=== PATIENT | female | born 1955 | race African-American/Black ===

== ENCOUNTER 2016-10-14 14:55 | Emergency (ER) | payer SELFPAY ==
[2016-10-14 14:37] LABS: ASCORBIC ACID (UR NOT ORDER) NEG (NEG); BILIRUBIN, URINE NEGATIVE (NEG); ER URINALYSIS TAT 0 Hrs 20 Mins; KETONE, URINE NEGATIVE (NEG); LEUKOCYTE ESTERASE(NOT OR SMALL (NEG); NITRITE (URINE) NEG (NEG); WBC (NOT ORDERED) (RFLEX) 2 (0-5)
[~2016-10-14 14:55] MED LIST: PRIN5 PO
[2016-10-14 16:55] LABS: CHLAMYDIA TRACH PCR NOT DETECTED (NOT DETEC); GC PCR NOT DETECTED (NOT DETECT); SOURCE: FEMALE URINE
== END 2016-10-14 15:00 | disposition home or self-care (01) ==
LOC: ER 14:55
PROVIDERS: Nurse Practitioner
DX: N76.0 Acute vaginitis (principal); Z72.51 High risk heterosexual behavior; I10 Essential (primary) hypertension; Z79.899 Other long term (current) drug therapy
CPT/HCPCS: 81001; 87086; 87210; 87491; 87591; 96372; 99283; A9270-GY; J0696

== ENCOUNTER 2016-11-08 13:55 | Emergency (ER) | payer SELFPAY | END 2016-11-08 16:26 | disposition home or self-care (01) | LOC: ER 13:55 | DX: J02.9 Acute pharyngitis, unspecified (principal); I10 Essential (primary) hypertension; F17.200 Nicotine dependence, unspecified, uncomplicated; Z90.89 Acquired absence of other organs; Z79.899 Other long term (current) drug therapy | CPT/HCPCS: 87070; 87880; 99283 ==